=== PATIENT | female | born 1945 | race Caucasian/White ===

== ENCOUNTER → 2016-10-22 | Outpatient (CLI) | payer MEDICARE, OTHER ==
[~2016-10-22] MED LIST: BACTROBAN OINT.22 GM TP; CINNAMON500 MG PO; HYDROCODONE 5MG/5 MG PO; MICRO-K DPS10 MEQ PO; OMEGA-3 DPS1000 MG PO; OYSTER SHELL C500 MG PO; PRILOSEC DPS20 MG PO; THERA1 EACH PO; VITAMIN B COMP1 EACH PO; VITAMIN C500 M2 PO; VITAMIN D31000 UNIT PO
== END | disposition home or self-care (01) ==
LOC: RAD.S 16:13
DX: M79.605 Pain in left leg (principal)

== ENCOUNTER 2016-12-21 23:39 | Emergency (ER) | payer MEDICARE, OTHER ==
--- NOTE | 2016-12-22 06:48 | ER ---
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 States she was scratched below her left eye by her own kitten tonight. Denies any direct eye trauma, photophobia, or foreign body sensation. Last tetanus in 2013. Exam remarkable for nontoxic, afebrile female. Normal eye exam, comfortable, quiet eye. Wound was cleansed, covered with bacitracin. Home with Bactroban ointment t.i.d. x7 days starting tomorrow. Continue daily vancomycin, and follow up Dr. Morales as needed. Ga Huitron MD/ ricardo JOB #: [id number] CC: Ga Huitron MD, Attending Physician German Morales MD, Family Physician German Morales MD
== END 2016-12-22 00:30 | disposition home or self-care (01) ==
LOC: ER 23:39
DX: S00.212A Abrasion of left eyelid and periocular area, initial encounter (principal); W55.03XA Scratched by cat, initial encounter; Y92.009 Unspecified place in unspecified non-institutional (private) residence as the place of occurrence of the external cause